=== PATIENT | female | born 1960 | race Caucasian/White ===

== ENCOUNTER → 2016-12-29 | Outpatient (CLI) | payer BC ==
--- NOTE | 2016-12-31 16:58 | RAD ---
Examination: XR THORACIC SPINE 2 VIEWS dated 12/29/2016 9:19 AM CDT History: DORSALGIA Comparison: None Technique: Three views of the thoracic spine FINDINGS: The vertebral bodies demonstrate normal height and alignment. The intervertebral disc spaces are relatively well-preserved. Minimal degenerative changes. IMPRESSION: Minimal degenerative changes of the thoracic spine without acute findings. Electronically signed by: Tushar Martin MD 12/31/2016 4:57 PM CDT
--- NOTE | 2016-12-31 16:59 | RAD ---
Examination: XR CHEST 2 VIEWS dated 12/29/2016 9:19 AM CDT History: OTHER FATIGUE Comparison: None Technique: Frontal and lateral views of the chest Findings: The lungs are clear bilaterally. No pneumothorax or pleural effusion. The cardiomediastinal silhouette is within normal limits. Impression: No acute disease. Electronically signed by: Tushar Martin MD 12/31/2016 4:58 PM CDT
== END | disposition home or self-care (01) ==
LOC: LAB.O 08:42
PROVIDERS: ATTEND Emergency Medicine
DX: R05 Cough (principal); M54.9 Dorsalgia, unspecified; R53.83 Other fatigue

== ENCOUNTER 2018-07-30 17:44 | Emergency (ER) | payer BC ==
[2018-07-30] MEDS ORDERED: LACTATED RINGERS 1,000 ML ONE (18:01)
--- NOTE | 2018-07-30 18:15 | ED.PDOC ---
History of Present Illness - General Source: patient Exam Limitations: no limitations - History of Present Illness Initial Comments: Eliud Frost 58 y/o female brought by EMS to ER with bloody stool for the last 3 days and abdominal cramps initially seen at Urgent care clinic sent to ER with low blood pressure.No hematemesis.Had colonoscopy done at [facility]. 15 years ago for lower gi bleeding was diagnosed with colitis. Timing/Duration: other - 3 days Severity: severe Improving Factors: nothing Worsening Factors: nothing Associated Symptoms: other - see hpi <Mich Reid R - Last Filed: 07/30/18 19:15> <Christiano Houston - Last Filed: 07/30/18 21:43> - General Chief Complaint: Blood Pressure Problem Stated Complaint: blood in stool Time Seen by Provider: 07/30/18 18:15 - History of Present Illness Allergies/Adverse Reactions: Allergies Cefaclor [From Ceclor] Allergy (Verified 07/30/18 18:08) NSAIDs Allergy (Verified 07/30/18 18:09) Home Medications: Ambulatory Orders Albuterol Sulfate Nebs [Proventil Nebs] 2.5 mg INH TID PRN 07/30/18 Albuterol Sulfate [Ventolin Hfa] 90 mcg IN Q4H PRN 07/30/18 Xttlxfyydt-Hsdscgnvbnyms-Jocng [Butalbital/Acetaminophen/] 1 cap PO Q6H PRN 07/30/18 Clonidine HCl 0.1 mg PO TID 07/30/18 DULoxetine HCL [Cymbalta] 30 mg PO DAILY 07/30/18 Dicyclomine HCl [Bentyl] 40 mg PO QID 07/30/18 Famotidine [Pepcid Tab] 20 mg PO BID 07/30/18 Lisinopril [Zestril] 40 mg PO DAILY 07/30/18 Metoprolol Tartrate [Lopressor] 100 mg PO BID 07/30/18 Montelukast [Singulair] 10 mg PO DAILY 07/30/18 Review of Systems - Review of Systems Constitutional: States: no symptoms reported EENTM: States: no symptoms reported Respiratory: States: no symptoms reported Cardiology: States: no symptoms reported Gastrointestinal/Abdominal: States: see HPI, other - melena Genitourinary: States: no symptoms reported Musculoskeletal: States: no symptoms reported All other Systems: Reviewed and Negative, No Change from Baseline <LucilaSarahi fergusono R - Last Filed: 07/30/18 19:15> Past Medical History (General) - Patient Medical History Hx of COPD: Yes Surgical History: cholecystectomy, other - cone biopsy - Social History Hx Alcohol Use: No Hx Substance Use: No Hx Physical Abuse: No Hx Emotional Abuse: No - Female History Patient is a Female of Child Bearing Age (10 -59 yrs old): Yes Patient : No <LucilaNishant fergusonEpps R - Last Filed: 07/30/18 19:15> Family Medical History - Family History Mother Living Status: Still Living Hx Family Diabetes: Yes - multiple family members Father Living Status: Hx Cardiac Disease: Yes Hx Family Diabetes: Yes <LucilaNishant fergusonEpps R - Last Filed: 07/30/18 19:15> Physical Exam - Physical Exam General Appearance: Alert, Comfortable, No apparent distress Eye Exam: bilateral normal, bilateral other - pale conjunctiva Ears, Nose, Throat: hearing grossly normal, normal ENT inspection Neck: non-tender, full range of motion, supple Respiratory: chest non-tender, lungs clear, normal breath sounds Cardiovascular/Chest: normal peripheral pulses, regular rate, rhythm, no murmur Peripheral Pulses: radial,right: 2+ Gastrointestinal/Abdominal: normal bowel sounds, non tender, soft Rectal Exam: normal rectal tone, other - no gross blood Back Exam: no CVA tenderness, no vertebral tenderness <StewartNishantEpps R - Last Filed: 07/30/18 19:15> Progress - Progress Progress: 07/30/18 18:33 Vital Signs - 24 hr 07/30/18 18:16 Temperature 97.1 F L Pulse Rate [L 68 finger] Respiratory 18 Rate Blood Pressure 74/48 [L arm] O2 Sat by Pulse 95 Oximetry <StewartNishantEpps R - Last Filed: 07/30/18 19:15> - Progress Progress: 07/30/18 20:45 PT SEEN INITIALLY BY DR REID, TRANSFERRED TO [facility] AT 1900, C/O 3 DAYS OF DIARRHEA, WATERY THEN WITH BRIGHT RED BLOOD. HAS NOT HAD ANY BLEEDING TODAY, C/O LOWER ABD PAIN, LIKE LABOR CRAMP, OCC COUGH. DENIES FEVER, N/V. PT HAS HX OF HTN, IBS FIBROMYALGIA, CLUSTER HERNANDEZ. PT IS HYPOTENSIVE AND HAS DIFFUSE TTP LOWER ABD WITH SOME VOLUNTARY GUARDING, BUT PT REFERS THAT THAT PAIN IS TYPICAL OF HER FIBROMYALGIA. AFTER 2 LITERS OF IV FLUIDS BP IS IN THE 70'S. PT TAKES BETA BLOQUERS, GLUCAGON WAS GIVEN WITH NO IMPROVEMENT. THIRD LITTER WAS STARTED, AND WILL START LEVOPHED DRIP. CALL [facility] FOR TRANSFER BUT TRANSFER LINE IS BUSY AT THE MOMENT. CT ABD WAS ORDERED WITH OUT CONTRAST DUE TO JEAN-PIERRE. 07/30/18 20:51 07/30/18 21:35 PT ON HER THIRD LITER OF FLUIDS, ON LEVOPHED, BP 137/96, FEELING BETTER, (+) URINE OUTPUT. D/W DR TUCKER AT [facility] IN , WILL TRANSFER TO [place]. CRITICAL CARE NOTE: CRITICAL EVENT: BLOODY DIARRHEA CRITICAL FINDINGS: BP 60'S/40'S, CR: 2.88 CRITICAL ACTIONS: AGGRESSIVE FLUID RESUSCITATION, LEVOPHED DRIP, TRANSFER TO A HIGHER LEVEL OF CARE. CRITICAL TIME SPENT: 65 MINUTES 07/30/18 21:39 07/30/18 18:09 Lactated Ringers [Lr] 1,000 ml IVS .QD 07/30/18 19:45 EKG STAT 07/30/18 19:49 PROCALCITONIN Stat 07/30/18 20:30 Norepinephrine Bitartrate [Levophed] 4 mg Dextrose 5% 250Ml [D5W 250ml] 250 ml IVPB PRN 07/30/18 20:49 URINALYSIS Stat 07/30/18 20:53 Catheter:Dempsey QSHIFT 07/30/18 21:25 Telemetry ONCE 07/30/18 21:33 EKG Assessment ONCE 07/30/18 21:45 EKG STAT Laboratory Results - last 24 hr 07/30/18 07/30/18 07/30/18 18:15 18:30 18:51 WBC 6.5 RBC 3.70 L Hgb 12.2 Hct 36.7 MCV 99.3 H MCH 33.1 H MCHC 33.3 RDW 14.4 Plt Count 268 MPV 8.7 Absolute Neuts (auto) 4.60 Absolute Lymphs (auto) 1.40 Absolute Monos (auto) 0.40 Absolute Eos (auto) 0.10 Absolute Basos (auto) 0.00 Neutrophils % 71.4 Lymphocytes % 20.9 Monocytes % 5.8 Eosinophils % 1.3 Basophils % 0.6 PT 9.5 INR 0.95 PTT (SP) 19.6 L Sodium 135 Potassium 3.9 Chloride 101 Carbon Dioxide 23 Anion Gap 14.9 BUN 31 H Creatinine 2.88 H BUN/Creatinine Ratio 10.8 Random Glucose 84 Serum Osmolality 275.8 Calcium 8.6 Magnesium 1.9 Total Bilirubin 0.3 Direct Bilirubin 0.1 Indirect Bilirubin 0.2 AST 19 ALT 12 Alkaline Phosphatase 117 Creatine Kinase 37 CK-MB (CK-2) 1.8 CK-MB (CK-2) % 4.86 H Troponin I 0.02 Serum Total Protein 6.7 Albumin 3.6 Stool Occult Blood Positive Patient ABO/Rh Cancelled Antibody Screen Cancelled - EKG/XRAY/CT Comments: EKG: NSR 63X', AQRS: 85, QTc 462, NON SPECIFIC STT CHANGES. Xray Comments: CXR: NAF CT Interpretation Call Back: Yes - NO OBSTRUCTION OR INFLAMATION NOTES <Christiano Houston - Last Filed: 07/30/18 21:43> Departure <Mich Reid - Last Filed: 07/30/18 19:15> <Christiano Houston - Last Filed: 07/30/18 21:43> - Departure Clinical Impression: Gastroenteritis, Acute kidney injury Hypotension Qualifiers: Hypotension type: hypotension due to hypovolemia Qualified Code(s): I95.89 - Other hypotension; E86.1 - Hypovolemia Disposition: Transfer to Hospital Condition: Fair Departure Forms: ED Discharge - Pt. Copy, Patient Portal Self Enrollment Instructions: DI for High Blood Pressure Referrals: TIMMY AVALOS [Primary Care Provider] - 1-2 Weeks Home Medications: Ambulatory Orders Albuterol Sulfate Nebs [Proventil Nebs] 2.5 mg INH TID PRN 07/30/18 Albuterol Sulfate [Ventolin Hfa] 90 mcg IN Q4H PRN 07/30/18 Qkfxmzonnu-Dhivfnxmpohex-Prvyh [Butalbital/Acetaminophen/] 1 cap PO Q6H PRN 07/30/18 Clonidine HCl 0.1 mg PO TID 07/30/18 DULoxetine HCL [Cymbalta] 30 mg PO DAILY 07/30/18 Dicyclomine HCl [Bentyl] 40 mg PO QID 07/30/18 Famotidine [Pepcid Tab] 20 mg PO BID 07/30/18 Lisinopril [Zestril] 40 mg PO DAILY 07/30/18 Metoprolol Tartrate [Lopressor] 100 mg PO BID 07/30/18 Montelukast [Singulair] 10 mg PO DAILY 07/30/18
[2018-07-30] MEDS: LACTATED RINGERS 1,000 ML IVS PRN (18:49)
[2018-07-30] MEDS ORDERED: GLUCAGON INJ 1 MG VIAL ONE (19:18)
[2018-07-30] MEDS: GLUCAGON INJ 1 MG VIAL IV ONE (19:22)
--- NOTE | 2018-07-30 19:33 | RAD ---
EXAM: Chest,1 View CLINICAL INDICATION: Pain COMPARISON: 12/29/2016 FINDINGS: A single view of the chest was obtained. The heart size is normal. The pulmonary vascularity is unremarkable. The lungs are clear. There is no consolidation, infiltrate, pleural effusion, or pneumothorax. IMPRESSION: No evidence of active pulmonary disease. Electronically signed by: Augustine Butts MD 07/30/2018 7:31 PM CDT
[2018-07-30] MEDS: SODIUM CHLORIDE 0.9% 1000ML 1,000 ML IVS ONE (19:49)
[2018-07-30] MEDS ORDERED: NOREPINEPHRINE BITARTRATE 4 MG/4 ML VIAL IVPB ONE (20:36)
[2018-07-30] MEDS ORDERED: DEXTROSE 5% 250ML 250 ML ONE (20:37)
[2018-07-30] MEDS: NOREPINEPHRINE BITARTRATE 4 MG in DEXTROSE 5% 250ML 250 ML IVPB SCH (20:43)
[2018-07-30 21:05] VITALS: O2SAT 98
--- NOTE | 2018-07-30 21:28 | CT ---
EXAM: CT Abdomen and Pelvis Without Intravenous Contrast CLINICAL HISTORY: 58 years old and is Female; LOWER ABD PAIN, DIARRHEA, HYPOTENSION, JEAN-PIERRE TECHNIQUE: Axial computed tomography images of the abdomen and pelvis without intravenous contrast. Sagittal and coronal reformatted images were created and reviewed. This CT exam was performed using one or more of the following dose reduction techniques: automated exposure control, adjustment of the mA and/or kV according to patient size, and/or use of iterative reconstruction technique. COMPARISON: No relevant prior studies available. FINDINGS: Limitations: None. Lung bases: Centrilobular emphysematous changes are present. ABDOMEN: Liver: Unremarkable. Gallbladder and bile ducts: Cholecystectomy. No ductal dilation. Pancreas: Unremarkable. No ductal dilation. Spleen: Unremarkable. No splenomegaly. Adrenals: Unremarkable. No mass. Kidneys and ureters: There is a slightly ill-defined hypodensity in the posterior mid pole cortex right kidney measuring 1.0 x 1.0 cm. No stones or hydronephrosis. Left kidney appears normal. Stomach and bowel: Moderate to large amounts of right and transverse colonic stool present. No mucosal thickening. PELVIS: Appendix: No findings to suggest acute appendicitis. Bladder: There is a catheter in the urinary bladder which is collapsed and not assessed. Reproductive: Unremarkable as visualized. ABDOMEN and PELVIS: Intraperitoneal space: Unremarkable. No free air. No significant fluid collection. Bones/joints: Incidental sacral cysts noted. No acute fracture. No dislocation. Soft tissues: Unremarkable. Vasculature: Atherosclerosis of the aorta and branches. No aneurysm. Lymph nodes: Unremarkable. No enlarged lymph nodes. IMPRESSION: 1. No intestinal obstruction or evident inflammation. 2. Ill-defined low-density nodule right kidney may represent a cyst. Further evaluation with sonography recommended unless there is an old study to compare. Electronically signed by: Gavi Thayer MD 07/30/2018 9:25 PM CDT
[2018-07-30 22:02] VITALS: BP 138/88; TEMP 97
== END 2018-07-30 22:22 | disposition short-term general hospital (02) ==
LOC: ER 17:44
DX: K52.9 Noninfective gastroenteritis and colitis, unspecified (principal); N17.9 Acute kidney failure, unspecified; I95.89 Other hypotension; E86.1 Hypovolemia; K92.1 Melena; K58.9 Irritable bowel syndrome, unspecified; I10 Essential (primary) hypertension; M79.7 Fibromyalgia; J44.9 Chronic obstructive pulmonary disease, unspecified; Z90.49 Acquired absence of other specified parts of digestive tract; Z79.899 Other long term (current) drug therapy; Z88.6 Allergy status to analgesic agent; Z88.1 Allergy status to other antibiotic agents
CPT/HCPCS: 71045; 74176; 80048; 80076; 81001; 82270; 82550; 82553; 84484; 85025; 85610; 85730; 93005; J1610; J7030; J7060; J7120

== ENCOUNTER 2018-11-18 16:18 | Emergency (ER) | payer BC ==
--- NOTE | 2018-11-18 16:27 | ED.PDOC ---
History of Present Illness - General Chief Complaint: Neuro Symptoms/Deficits Stated Complaint: left sided weakness Time Seen by Provider: 11/18/18 16:21 Source: patient Exam Limitations: no limitations - History of Present Illness Initial Comments: Eliud Frost 58 y/o female brought by EMS after patient was feeling weak on her left side and had some slurred speech on waking up from her nap about an hour ago.But according to he stated that she had been sleeping a lot today and on waking up mentioned that she might be having stroke so called up ambulance.Has history of HTN and chronic right shoulder pain goes to pain specialist was recently prescribed buprenorphine-2mg BID which she started 14 Nov 2018.On her .FSBS-144 mg/dl taken by EMS.On her arrival here at ER she was somnolent with slow speech no lateralizing neurological signs. Timing/Duration: 1-3 hours Severity: moderate Episode Description: see hpi Improving Factors: nothing Worsening Factors: nothing Associated Symptoms: other - see hpi Allergies/Adverse Reactions: Allergies Cefaclor [From Ceclor] Allergy (Verified 07/30/18 18:08) NSAIDs Allergy (Verified 07/30/18 18:09) Home Medications: Ambulatory Orders Albuterol Sulfate Nebs [Proventil Nebs] 2.5 mg INH TID PRN 07/30/18 Albuterol Sulfate [Ventolin Hfa] 90 mcg IN Q4H PRN 07/30/18 Xnfnqtjose-Voluvimjflzoz-Hqysr [Butalbital/Acetaminophen/] 1 cap PO Q6H PRN 07/30/18 DULoxetine HCL [Cymbalta] 60 mg PO DAILY 07/30/18 Lisinopril [Zestril] 40 mg PO DAILY 07/30/18 Metoprolol Tartrate [Lopressor] 100 mg PO BID 07/30/18 Buprenorphine HCl 2 mg SL BID 11/18/18 Docusate Sodium [Stool Softener] 100 mg PO PRN 11/18/18 Pantoprazole Sodium 40 mg PO DAILY 11/18/18 Pregabalin [Lyrica] 75 mg PO BID 11/18/18 hydrOXYzine HCl [Atarax] 25 mg PO Q8H 11/18/18 Review of Systems - Review of Systems Neurological: States: see HPI All other Systems: Reviewed and Negative, No Change from Baseline Past Medical History (General) - Patient Medical History Hx Stroke: No Hx of COPD: Yes Hx Congestive Heart Failure: No Hx Hypertension: Yes Hx Diabetes: No Hx Gastroesophageal Reflux: Yes Hx Other PMH: Yes - chroni right shoulder pain Surgical History: cholecystectomy, other - cone biopsy cervix - Vaccination History Hx Tetanus, Diphtheria Vaccination: Yes Hx Influenza Vaccination: Yes Hx Pneumococcal Vaccination: Yes - Social History Hx Tobacco Use: No Hx Alcohol Use: No Hx Substance Use: No Hx Substance Use Treatment: No Hx Depression: No Hx Physical Abuse: No Hx Emotional Abuse: No - Female History Patient : No Family Medical History - Family History Father Living Status: Hx Cardiac Disease: Yes Hx Family Diabetes: Yes Mother Living Status: Still Living Hx Family Diabetes: Yes - multiple family members Physical Exam - Physical Exam General Appearance: No apparent distress, Other - somnolent Eye Exam: bilateral normal ENT Exam: normal ENT inspection, hearing grossly normal, pharynx normal Neck: full range of motion, supple, normal inspection, trachea midline Respiratory: lungs clear, normal breath sounds, no respiratory distress Cardiovascular/Chest: normal peripheral pulses, no murmur, tachycardia - sinus Peripheral Pulses: radial,right: 2+, radial,left: 2+ Gastrointestinal/Abdominal: non tender, soft Back Exam: no CVA tenderness, no vertebral tenderness 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: normal hearing, normal speech, PERRL Motor/Sensory: no motor deficit, no sensory deficit, no pronator drift, negative Babinski's sign Skin Exam: normal color, warm/dry Progress - Progress Progress: 11/18/18 17:53 Vital Signs - 8 hr 11/18/18 11/18/18 16:20 17:18 Temperature 97.4 F L Pulse Rate [ 132 H 131 H Left Brachial] Respiratory 16 20 Rate Blood Pressure 178/136 136/102 [Left Arm] O2 Sat by Pulse 93 L 95 Oximetry 11/18/18 18:21 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 - Results/Orders Results/Orders: 11/18/18 16:27 URINALYSIS Stat 11/18/18 16:30 EKG STAT 11/18/18 16:32 URINE DRUG SCREEN, 7 ASSAY Stat 11/18/18 17:38 Sodium Chloride 0.9% 1000ML [Ns 1000 ml] 1,000 ml IVS ONCE 11/18/18 17:42 Sodium Chloride 0.9% 1000ML [Ns 1000 ml] 1,000 ml IVS .QD Laboratory Results - last 24 hr 11/18/18 11/18/18 11/18/18 16:27 16:32 16:33 WBC 9.1 RBC 4.26 Hgb 13.8 Hct 40.6 MCV 95.3 MCH 32.4 H MCHC 34.0 RDW 13.9 Plt Count 322 MPV 7.9 Absolute Neuts (auto) 7.40 H Absolute Lymphs (auto) 0.70 L Absolute Monos (auto) 0.90 H Absolute Eos (auto) 0.10 Absolute Basos (auto) 0.00 Neutrophils % 81.1 H Lymphocytes % 8.1 L Monocytes % 9.7 H Eosinophils % 0.6 L Basophils % 0.5 PT 10.3 INR 1.03 PTT (SP) 25.7 Sodium 140 Potassium 4.3 Chloride 101 Carbon Dioxide 25 Anion Gap 18.3 H BUN 48 H Creatinine 2.82 H BUN/Creatinine Ratio 17.0 Random Glucose 130 H Serum Osmolality 293.8 Lactic Acid 1.3 Calcium 9.1 Magnesium 2.2 Total Bilirubin 0.9 Direct Bilirubin < 0.1 Indirect Bilirubin 0.8 AST 22 ALT 13 Alkaline Phosphatase 173 H Creatine Kinase 264 H* CK-MB (CK-2) 11.5 H* CK-MB (CK-2) % 4.36 H Troponin I 0.24 H* Serum Total Protein 8.0 Albumin 4.4 TSH 1.08 Discuss test result with patient family and transfer to [facility] agreed with plan - EKG/XRAY/CT EKG: Sinus, Tachy, nonspecific ST T wave Chg, Changed from - July 2018 Comments: HR-129 Stroke Information - Contraindications Antithrombotic Contraindication: Treatment not indicated t-PA Contraindication: Drug Tx Not Indicated Departure - Departure Clinical Impression: Somnolence, Non-STEMI (non-ST elevated myocardial infarction), Renal insufficiency Chronic shoulder pain Qualifiers: Laterality: right Qualified Code(s): M25.511 - Pain in right shoulder Time of Disposition: 18:30 Disposition: Transfer to Hospital Condition: Fair Departure Forms: ED Discharge - Pt. Copy, Patient Portal Self Enrollment Referrals: TIMMY AVALOS [Primary Care Provider] - 1-2 Weeks Home Medications: Ambulatory Orders Albuterol Sulfate Nebs [Proventil Nebs] 2.5 mg INH TID PRN 07/30/18 Albuterol Sulfate [Ventolin Hfa] 90 mcg IN Q4H PRN 07/30/18 Nhsncfcieh-Bypofkgjeiktq-Dojgd [Butalbital/Acetaminophen/] 1 cap PO Q6H PRN 07/30/18 DULoxetine HCL [Cymbalta] 60 mg PO DAILY 07/30/18 Lisinopril [Zestril] 40 mg PO DAILY 07/30/18 Metoprolol Tartrate [Lopressor] 100 mg PO BID 07/30/18 Buprenorphine HCl 2 mg SL BID 11/18/18 Docusate Sodium [Stool Softener] 100 mg PO PRN 11/18/18 Pantoprazole Sodium 40 mg PO DAILY 11/18/18 Pregabalin [Lyrica] 75 mg PO BID 11/18/18 hydrOXYzine HCl [Atarax] 25 mg PO Q8H 11/18/18 Transfer to Outside Facility - Transfer Information Accepting Provider:: D/W Dr. Vela-Cardilogist ;Dr. 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
[2018-11-18] MEDS ORDERED: SODIUM CHLORIDE 0.9% 500ML 500 ML IVS ONE (16:34)
[2018-11-18] MEDS ORDERED: ASPIRIN (CHEWABLE) 81 MG TAB PO ONE (16:48)
--- NOTE | 2018-11-18 17:11 | RAD ---
EXAM DESCRIPTION: Chest,1 View CLINICAL HISTORY: 58 years Female, weakness COMPARISON: July 30, 2018 TECHNIQUE: Portable AP chest FINDINGS: Cardiac silhouette and mediastinum are within normal limits. Left hemidiaphragm is now elevated. No infiltrates. IMPRESSION: Left hemidiaphragm is elevated. No infiltrates Electronically signed by: Jesus Alberto Petit 11/18/2018 5:10 PM CDT
--- NOTE | 2018-11-18 17:13 | CT ---
EXAM DESCRIPTION: Head CLINICAL HISTORY: 58 years Female, left sided weakness COMPARISON: None. TECHNIQUE: Axial imaging. No IV contrast. Sagittal and coronal reconstruction FINDINGS: Ventricular system is within normal limits. Mild periventricular low-attenuation change consistent with mild chronic small vessel ischemia. No masses. There is no evidence of intracranial hemorrhage. Left nasal septal deviation with left nasal septal spur formation IMPRESSION: Mild periventricular low-attenuation change consistent with mild chronic small vessel ischemia. If there is clinical concern for acute cerebral ischemia, MR imaging with diffusion sequences would be useful for further diagnostic evaluation Electronically signed by: Jesus Alberto Petit 11/18/2018 5:12 PM CDT
[2018-11-18] MEDS ORDERED: SODIUM CHLORIDE 0.9% 1000ML 1,000 ML IVS ONE (17:38)
[2018-11-18] MEDS ORDERED: SODIUM CHLORIDE 0.9% 1000ML 1,000 ML IVS PRN (17:42)
[2018-11-18] MEDS ORDERED: METOPROLOL SUCCINATE XL 50 MG TAB PO ONE (18:23)
[2018-11-18] MEDS ORDERED: ENOXAPARIN SODIUM 60 MG/0.6 ML SYG SUBCU ONE (18:26)
[2018-11-18 18:46] VITALS: BP 126/75; TEMP 96.1; O2SAT 96
== END 2018-11-18 18:46 | disposition short-term general hospital (02) ==
LOC: ER 16:18
DX: I21.4 Non-ST elevation (NSTEMI) myocardial infarction (principal); R40.0 Somnolence; N28.9 Disorder of kidney and ureter, unspecified; M25.511 Pain in right shoulder; G89.29 Other chronic pain; R00.0 Tachycardia, unspecified; K21.9 Gastro-esophageal reflux disease without esophagitis; I10 Essential (primary) hypertension; J44.9 Chronic obstructive pulmonary disease, unspecified; Z79.899 Other long term (current) drug therapy; Z88.1 Allergy status to other antibiotic agents; Z88.6 Allergy status to analgesic agent
CPT/HCPCS: 36415; 70450; 71045; 80048; 80076; 82550; 82553; 83605; 84443; 84484; 85025; 85610; 85730; 93005; J1650; J7030; J7040

== ENCOUNTER 2018-12-14 18:58 | Inpatient (IN) | payer BC ==
--- NOTE | 2018-12-14 19:08 | ED.PDOC ---
History of Present Illness - General Time Seen by Provider: 12/14/18 19:05 - History of Present Illness Initial Comments: 58 year old female with multiple medical problems including emphysema, possibles coronary artery diseases, atrial fibrillation ulcerativ colitis, patient present to the er because of shortness of breath patient has an hx of emphysema and she is not oxygen dependant at home, patient usually give herlsef a respiratory treatment twice a day, today after 3 pm she gave herself a treatment and the she started having palpitations. Ems gave her adenosine since her rate was in 140's and no improvement. patient was recently transferred from here to a different facility for stroke like symptoms, chest pain, and dehydration Allergies/Adverse Reactions: Allergies Cefaclor [From [facility]] Allergy (Verified 07/30/18 18:08) NSAIDs Allergy (Verified 07/30/18 18:09) Home Medications: Ambulatory Orders Albuterol Sulfate Nebs [Proventil Nebs] 2.5 mg INH TID PRN 07/30/18 Albuterol Sulfate [Ventolin Hfa] 90 mcg IN Q4H PRN 07/30/18 [id number] [Butalbital/Acetaminophen/] 1 cap PO Q6H PRN 07/30/18 DULoxetine HCL [Cymbalta] 60 mg PO DAILY 07/30/18 Lisinopril [Zestril] 40 mg PO DAILY 07/30/18 Metoprolol Tartrate [Lopressor] 100 mg PO BID 07/30/18 Buprenorphine HCl 2 mg SL BID 11/18/18 Docusate Sodium [Stool Softener] 100 mg PO PRN 11/18/18 Pantoprazole Sodium 40 mg PO DAILY 11/18/18 Dicyclomine HCl [Bentyl] 40 mg PO QID 12/14/18 Review of Systems - Review of Systems Constitutional: States: no symptoms reported. Denies: chills, diaphoresis, fever, malaise, weakness EENTM: States: no symptoms reported. Denies: double vision, ear pain, ear discharge, nose pain, nose congestion, throat pain, throat swelling, mouth pain, mouth swelling Respiratory: States: no symptoms reported. Denies: cough, orthopnea, short of breath, stridor, wheezing Cardiology: States: no symptoms reported. Denies: chest pain, edema, palpitations, syncope Gastrointestinal/Abdominal: States: no symptoms reported. Denies: abdominal pain, constipation, diarrhea, nausea, vomiting Genitourinary: States: no symptoms reported. Denies: dysuria, frequency, hematuria, pain Musculoskeletal: States: no symptoms reported. Denies: back pain, joint pain, joint swelling, muscle pain, muscle stiffness, neck pain Skin: States: no symptoms reported. Denies: change in color Neurological: States: no symptoms reported Endocrine: States: no symptoms reported. Denies: excessive sweating, flushing, intolerance to cold, intolerance to heat, increased hunger, increased thirst, unexplained weight gain, unexplained weight loss Hematologic/Lymphatic: States: no symptoms reported. Denies: blood clots Past Medical History (General) - Patient Medical History Hx Seizures: Yes Hx Stroke: No Hx of COPD: Yes Hx Congestive Heart Failure: No Hx Hypertension: Yes Hx Diabetes: No Hx Gastroesophageal Reflux: Yes - Vaccination History Hx Tetanus, Diphtheria Vaccination: Yes Hx Influenza Vaccination: Yes Hx Pneumococcal Vaccination: Yes - Social History Hx Tobacco Use: No Hx Alcohol Use: No Hx Substance Use: No Hx Substance Use Treatment: No Hx Depression: No Hx Physical Abuse: No Hx Emotional Abuse: No - Female History Patient : No Family Medical History - Family History Father Living Status: Hx Cardiac Disease: Yes Hx Family Diabetes: Yes Mother Living Status: Still Living Hx Family Diabetes: Yes - multiple family members Physical Exam - Physical Exam General Appearance: Alert, Anxious Eye Exam: bilateral normal Ears, Nose, Throat: hearing grossly normal, normal ENT inspection Neck: full range of motion Respiratory: chest non-tender, lungs clear, normal breath sounds, no respiratory distress Cardiovascular/Chest: normal peripheral pulses, no edema, no JVD, tachycardia, o ther - tachycardic Peripheral Pulses: radial,right: 2+, radial,left: 2+ Gastrointestinal/Abdominal: normal bowel sounds, non tender, soft, no organom egaly, no pulsatile mass Extremity: normal range of motion, non-tender, normal inspection, normal capillary refill Neurologic: no motor/sensory deficits, normal mood/affect, oriented x 3 Progress - Progress Progress: 12/14/18 21:01 this is a patient that presents with sob afte given her self a respiratory treatment at home, patient has an history of emphysema and also ulcerative colitis, her intial ekg showed what looked like a-fib and patient received a dose of adenosine via ems , without improvement. i decided to give her a dose of cardiezem and there was some minimal improvement. melecio stated that she was recently taking off the fibromyalgias medicine. patient use to be on hydrocodone. 12/14/18 21:04 patient d dimer were negative, troponins were also negative, normal hemoglobin and normal electrolites, chest x ray showed copd changes, patient at the moment is state she she feels better but her entire body hurts, patient afte ativan, fluid bolus ahd she is still tachycardic and bp remained elevated, i ordered a dose of hydralazine and discussed case with the hospitalist 12/14/18 21:08 tsh was also negative 12/14/18 21:24 i was able to speak with hospitalist and she stated that if we can keep the heart rate under 120 then we could keep her in ther Hospital, patient bp improved with the hyrdralazine, patient doesnt not appear in any distress and is able to speak in long a complete sentences no chest pain 12/15/18 00:54 patient blood work was essentially negative case was discussed with hospitalist because her heart rate had ramained high we will put her a cardizem drip and patient will be observe in the er if the heart rate remains in 120 or lower then patient will be admitted to our hospital 12/15/18 00:56 i suspect that patient symptoms due arrhythmia but also could be due to withdrawal from opiates 12/15/18 00:57 - EKG/XRAY/CT Comments: sinus tachycardia, heart rate 130, depressed st in lead II Departure - Departure Clinical Impression: Heart palpitations, Shortness of breath Disposition: Admit Patient Condition: Fair Health Concerns: stable to admit Referrals: TIMMY AVALOS [Primary Care Provider] - 1-2 Weeks Home Medications: Ambulatory Orders Albuterol Sulfate Nebs [Proventil Nebs] 2.5 mg INH TID PRN 07/30/18 Albuterol Sulfate [Ventolin Hfa] 90 mcg IN Q4H PRN 07/30/18 [id number] [Butalbital/Acetaminophen/] 1 cap PO Q6H PRN 07/30/18 DULoxetine HCL [Cymbalta] 60 mg PO DAILY 07/30/18 Lisinopril [Zestril] 40 mg PO DAILY 07/30/18 Metoprolol Tartrate [Lopressor] 100 mg PO BID 07/30/18 Buprenorphine HCl 2 mg SL BID 11/18/18 Docusate Sodium [Stool Softener] 100 mg PO PRN 11/18/18 Pantoprazole Sodium 40 mg PO DAILY 11/18/18 Dicyclomine HCl [Bentyl] 40 mg PO QID 12/14/18
[2018-12-14] MEDS ORDERED: SODIUM CHLORIDE 0.9% 1000ML 1,000 ML IVS ONE (19:09)
--- NOTE | 2018-12-14 19:45 | RAD ---
EXAM: AP CHEST RADIOGRAPH CLINICAL INDICATION: Shortness of breath. COMPARISON: Compared to chest radiograph of November 18, 2018. FINDINGS: Cardiac size remains normal. Pulmonary vasculature is peripherally distorted suggesting COPD and emphysematous disease. No pleural effusions. No pneumothorax, pneumomediastinum or free peritoneal gas. No hilar or mediastinal lymphadenopathy. No mediastinal widening. Bones are intact on this single view. IMPRESSION: COPD. No superimposed acute cardiopulmonary disease or pneumothorax. Electronically signed by: Jesus Alberto Julio MD 12/14/2018 7:44 PM CDT
[2018-12-14] MEDS ORDERED: hydrALAZINE HCl 20 MG/ML VIAL IV ONE (20:40)
[2018-12-14] MEDS ORDERED: SODIUM CHLORIDE 0.9% 100ML 100 ML IVPB ONE (21:25)
[2018-12-14] MEDS ORDERED: diltiaZEM DRIP 125 MG/25 ML VIAL IVPB ONE (21:25)
[2018-12-14] MEDS: diltiaZEM DRIP 125 MG in SODIUM CHLORIDE 0.9% 100ML 100 ML IVPB SCH (21:26)
[2018-12-14] MEDS ORDERED: niCARdipine HCL 25 MG in SODIUM CHLORIDE 0.9% 250ML 240 ML IVPB SCH (21:30)
[2018-12-14] MEDS ORDERED: ONDANSETRON INJ 4 MG/2 ML VIAL IV ONE (22:58)
[2018-12-14] MEDS ORDERED: diphenhydrAMINE HCL 50 MG/ML VIAL IV ONE (23:23)
--- NOTE | 2018-12-15 01:01 | HP ---
SUPERVISING PHYSICIAN: Gordo Bazzi M.D. CHIEF COMPLAINT: Shortness of breath and palpitations. HISTORY OF PRESENT ILLNESS: This is a 58 year-old female patient who presented to the Emergency Room due to palpitations and shortness of breath. She has not felt well for 2 weeks. She had these palpitations and shortness of breath, and yesterday at about 6:00 PM she went to the football field to watch her granddaughter do some cheerleading. She took an Albuterol treatment prior to going. She was trying to get up into the stands and she was unable to get up more than several steps, and had to come home and then went to the E. R. She has a fairly extensive history of emphysema, cardiac problems, atrial fibrillation and ulcerative colitis. She does not weary oxygen at home but she is on nebulizer treatments. She actually received some adenosine in the ambulance with minimal results. She presented to the Emergency Room and her heart rate was in the 140s. She was initially given some Cardizem. Her initial vital signs showed temperature 98.5, heart rate 140, blood pressure 157/109, respiratory rate 20 and O2 sat 97%. She was actually given some Cardizem IV in the E. R. and it did come down to 118, but shortly thereafter went up again to the 130s and 140s. At that time she was put on a Cardizem drip. Laboratory was obtained and showed a fairly unremarkable CBC with the exception of a very mild left leg shift on differential. D-dimer was negative. Chemistries showed electrolytes within normal limits. BNP was slightly high at 129 and alkaline phosphatase was slightly high at 134. Troponin was negative at 0.02. Chest x- ray showed no superimposed acute cardiopulmonary disease or pneumothorax. It is to be noted that she has chronic pain syndrome and has been on Sheldahl for 12 years, and about 1 month ago she was titrated off of her medications. She was also given buprenorphine and she was unable to take it. There are no other pain medications that she is taking. She has some shoulder pain as well as fibromyalgia and some neuropathy in her feet as well as some back pain. PAST MEDICAL HISTORY: 1. Left shoulder pain. 2. Chronic obstructive pulmonary disease. 3. Ulcerative colitis recently diagnosed about 6 months ago, presently has no neurologist. 4. Fibromyalgia. 5. Mitral valve prolapse presently does not have a android ui developer. 6. Remote history of seizure times 1. It was most likely due to hyponatremia in 2005. 7. Hypertension. 8. Gastroesophageal reflux disease. 9. Cluster headaches. PAST SURGICAL HISTORY: 1. section times 3. 2. Appendectomy. 3. Cone biopsy in 1983. 4. Cholecystectomy. CURRENT MEDICATIONS: ALLERGIES: BUPRENORPHINE, CEFACLOR, VERSED, NSAIDs AND ZOFRAN. SOCIAL HISTORY: She lives in [place]. She is . She has 3 children. She is retired. She was a 1 pack a day smoker for over 30 years and she quit approximately 10 years ago. She denies any ETOH or illicit drug use. REVIEW OF SYSTEMS: Negative for chills, fever or weight changes. HEENT: Negative for vision changes, ear pain, sinus symptoms or sore throat. RESPIRATORY: Positive for shortness of breath. Negative for wheezing or coughing. CARDIAC: Positive for palpitations. Negative for the patient. GASTROINTESTINAL: Positive for right upper quadrant abdominal pain, but that has been going on for many years. Right upper quadrant and epigastric abdominal pain. Negative for nausea, vomiting or diarrhea. GENITOURINARY: Negative dysuria, polyuria or hematuria. MUSCULOSKELETAL: Positive for fibromyalgia and left shoulder pain as well as chronic back pain. SKIN: Negative for lesions or rashes. NEUROLOGIC: Positive for remote history of seizure times 1 in 2005. She is on no medications and has not had one since that time. Positive for cluster headaches. Negative for dizziness. PHYSICAL EXAMINATION: VITAL SIGNS: Temperature 97.7, heart rate 78, blood pressure 101/69, respiratory rate 18, O2 sat 94% on 1 liter nasal cannula. GENERAL: This is a 58 year-old female patient who is sitting up in her hospital bed. She is somewhat anxious. HEENT: Normocephalic and atraumatic. Pupils are equal and reactive. Oropharynx is clear. NECK: Supple without mass. RESPIRATORY: Essentially clear to auscultation bilaterally. CHEST: There is equal rise and fall of the chest with inspiration and expiration. CARDIOVASCULAR: Regular rate, slightly irregular to regular rhythm. 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 GASTROINTESTINAL: Abdomen is soft, nondistended, non-tender. Bowel sounds are positive. There is no guarding or rebound tenderness. EXTREMITIES: No clubbing, cyanosis or edema. NEUROLOGIC: She is awake, alert and oriented times three. Cranial nerves II- XII are grossly intact. LABORATORY: Followup labs show a CBC with a slightly low hemoglobin of 11.4 and hematocrit 34.3. Chemistry is unremarkable with the exception of her magnesium is slightly low at 1.6 and potassium is slightly low at 3.4. Alkaline phosphatase has normalized to 104. CT of her abdomen is pending. All other labs and films have been reviewed via the EMR. ASSESSMENT: 1. Atrial fibrillation with rapid ventricular response. 2. Chronic pain syndrome. She had been on Sheldahl for over 12 years and was titrated off about 1 month ago. She may be experiencing some psychological withdrawals. 3. Fibromyalgia. 4. Chronic back pain. 5. Ulcerative colitis presently on no medications and was recently diagnosed about 6 months ago. She did have a referral to GI in [place] but was unable to get that referral completed. 6. Chronic obstructive pulmonary disease without exacerbation. 7. Gastroesophageal reflux disease. 8. Hypertension on medications. 9. History of atrial fibrillation on Metoprolol. She also has not seen a android ui developer, although at some point she was supposed to see Dr. Snow. 10. History of mitral valve prolapse. 11. Remote history of seizure times 1 in 2005 most likely due to hyponatremia. PLAN: I have admitted the patient to the hospital. She initially was on a Cardizem drip and that was stopped this morning after her rate was controlled. I have continued her on some Cardizem p.o. every 6 hours. Will continue her home medications. Although her blood pressure was somewhat low this morning her antihypertensives were adjusted. We will monitor her heart rhythm closely. She does have some chronic pain syndrome, including some fibromyalgia. I will start her on some Neurontin and see if that will help her chronic pain. As an outpatient she will need to followup with a GI doctor and I will recommend that in my discharge. I have started her on both routine and p.r.n. nebulizer treatments. I put her on Protonix for ulcer prophylaxis as well as Lovenox for DVT prophylaxis. She is not on any anticoagulation therapy for her atrial fibrillation. I will talk to Dr. Bazzi about starting her on some Eliquis at discharge. She also needs to see a android ui developer at some point. She received magnesium and potassium supplementation today and I will repeat her labs in the morning. Will continue to monitor closely and follow as needed. #[id number] [facility]
[2018-12-15] MEDS ORDERED: LEVALBUTEROL NEBS 1.25 MG/3 ML VIAL NEB PRN (01:13)
[2018-12-15] MEDS ORDERED: ACETAMINOPHEN 325 MG TAB PO PRN (01:13)
[2018-12-15] MEDS ORDERED: ONDANSETRON INJ 4 MG/2 ML VIAL IV PRN (01:13)
[2018-12-15] MEDS ORDERED: SODIUM CHLORIDE 0.9% (FLUSH) 10 ML SYG IV PRN (01:13)
[2018-12-15] MEDS ORDERED: KCL 20 MEQ/NS 1,000 ML IVS ONE (01:25)
[2018-12-15] MEDS ORDERED: IV SET AND CAP CHANGE INJ INJ SCH (01:30)
[2018-12-15] MEDS ORDERED: diltiaZEM DRIP 125 MG in SODIUM CHLORIDE 0.9% 100ML 100 ML IVPB SCH (01:30)
[2018-12-15] MEDS ORDERED: PROMETHAZINE HCL INJ 25 MG in SODIUM CHLORIDE 0.9% 50ML 50 ML IVPB PRN (01:38)
[2018-12-15] MEDS ORDERED: SODIUM CHLORIDE 0.9% 100ML 100 ML IVPB ONE (01:41)
[2018-12-15] MEDS ORDERED: diltiaZEM DRIP 125 MG/25 ML VIAL IVPB ONE (01:41)
[2018-12-15] MEDS: diltiaZEM DRIP 125 MG in SODIUM CHLORIDE 0.9% 100ML 100 ML IVPB SCH (01:45)
[2018-12-15] MEDS ORDERED: ENOXAPARIN SODIUM 60 MG/0.6 ML SYG SUBCU ONE (02:02)
[2018-12-15] MEDS: TEMAZEPAM 15 MG CAP PO PRN ×2 (02:05→20:44)
[2018-12-15] MEDS: DICYCLOMINE HCL 20 MG TAB PO PRN ×2 (02:07→17:58)
[2018-12-15] MEDS ORDERED: METHADONE HCL 10 MG TAB PO ONE (03:27)
[2018-12-15] MEDS ORDERED: HALOPERIDOL LACTATE INJ 5 MG/ML VIAL IM ONE (03:45)
[2018-12-15] MEDS: PANTOPRAZOLE SODIUM IV 40 MG VIAL IV SCH (06:22)
[2018-12-15] MEDS: diltiaZEM HCL TAB 30 MG TAB PO SCH ×3 (06:44→18:43)
[2018-12-15] MEDS ORDERED: LISINOPRIL 10 MG TAB ONE (07:42)
[2018-12-15] MEDS ORDERED: METOPROLOL TARTRATE 50 MG TAB ONE (07:42)
[2018-12-15] MEDS ORDERED: ENOXAPARIN SODIUM 60 MG/0.6 ML SYG SUBCU SCH (08:00)
[2018-12-15] MEDS ORDERED: POTASSIUM CHLORIDE 20 MEQ TAB PO ONE (08:14)
[2018-12-15] MEDS ORDERED: MAGNESIUM SULFATE PREMIX 2GM 2 GM in PREMIX BAG 1 BAG IVPB ONE (08:14)
[2018-12-15] MEDS: LEVALBUTEROL NEBS 1.25 MG/3 ML VIAL NEB SCH ×4 (08:17→20:56)
[2018-12-15] MEDS ORDERED: DOCUSATE SODIUM 100 MG CAP PO PRN (09:00)
[2018-12-15] MEDS ORDERED: MAGNESIUM SULFATE PREMIX 2GM 0 ML IVPB ONE (09:06)
[2018-12-15] MEDS ORDERED: MAGNESIUM SULFATE PREMIX 2GM 50 ML IVPB ONE (09:09)
[2018-12-15] MEDS: DULoxetine HCL 30 MG CAP PO SCH (09:18)
[2018-12-15] MEDS: LISINOPRIL 10 MG TAB PO SCH (09:20)
[2018-12-15] MEDS: SODIUM CHLORIDE 0.9% (FLUSH) 10 ML SYG IV SCH ×2 (09:21→20:45)
[2018-12-15] MEDS: METOPROLOL TARTRATE 50 MG TAB PO SCH ×2 (09:21→17:49)
[2018-12-15] MEDS: ENOXAPARIN SODIUM 60 MG/0.6 ML SYG SUBCU SCH (14:37)
[2018-12-15] MEDS: GABAPENTIN 100 MG CAP PO SCH (14:37)
[2018-12-15] MEDS ORDERED: GABAPENTIN 300 MG CAP PO SCH (21:00)
[2018-12-16] MEDS: diltiaZEM HCL TAB 30 MG TAB PO SCH ×4 (01:17→18:29)
[2018-12-16] MEDS: ENOXAPARIN SODIUM 60 MG/0.6 ML SYG SUBCU SCH ×2 (01:17→15:11)
[2018-12-16] MEDS: DICYCLOMINE HCL 20 MG TAB PO PRN ×4 (05:13→16:55)
[2018-12-16] MEDS: PANTOPRAZOLE SODIUM IV 40 MG VIAL IV SCH (05:31)
[2018-12-16] MEDS ORDERED: traMADol HCL 50 MG TAB PO ONE (05:39)
[2018-12-16] MEDS: METOPROLOL TARTRATE 50 MG TAB PO SCH ×2 (06:54→16:51)
--- NOTE | 2018-12-16 07:33 | RAD ---
EXAM: XR Abdomen, 1 View CLINICAL HISTORY: The patient is 58 years old and is Female; abd pain TECHNIQUE: Frontal supine view of the abdomen/pelvis. COMPARISON: CT from December 15, 2018 FINDINGS: Gastrointestinal tract: Unremarkable. No dilation. Bones/joints: Unremarkable. IMPRESSION: No acute findings. Electronically signed by: Salomón Vazquez MD 12/16/2018 7:30 AM CDT
[2018-12-16] MEDS: LEVALBUTEROL NEBS 1.25 MG/3 ML VIAL NEB SCH ×4 (08:35→20:22)
[2018-12-16] MEDS: LISINOPRIL 10 MG TAB PO SCH (08:56)
[2018-12-16] MEDS: SODIUM CHLORIDE 0.9% (FLUSH) 10 ML SYG IV SCH ×2 (08:56→21:31)
[2018-12-16] MEDS: DULoxetine HCL 30 MG CAP PO SCH (08:56)
[2018-12-16] MEDS: GABAPENTIN 100 MG CAP PO SCH (08:56)
[2018-12-16] MEDS ORDERED: HALOPERIDOL TAB 1 MG TAB PO PRN (12:46)
[2018-12-16] MEDS: MAGNESIUM HYDROXIDE 30 ML UD PO SCH ×2 (13:23→16:51)
[2018-12-16] MEDS: SULFA/TRIMETH 800/160 (DS) TAB 1 EA TAB PO SCH ×2 (13:23→21:30)
[2018-12-16] MEDS: GABAPENTIN 300 MG CAP PO SCH (15:11)
--- NOTE | 2018-12-16 19:06 | PN ---
DATE: 12/16/18 SUPERVISING PHYSICIAN: Gordo Bazzi M.D. SUBJECTIVE: The patient is sitting up in bed. She said she is feeling some better today. Still feels quite weak, otherwise no chest pain, shortness of breath, nausea or vomiting. We discussed that she is somewhat constipated and I need to treat that with Milk of Magnesia. She also complained that she had a bump on the right side of her labia that had been bothering her for several days, and asked me to examine it. She also felt like the Haldol was working the best as far as her sleep problems were going, but she typically has a difficult time sleeping at any point. OBJECTIVE: VITAL SIGNS: Temperature 98.4, heart rate 82, blood pressure 160/99, respiratory rate 20, O2 sat 92% on room air. RESPIRATORY: Somewhat diminished at the bases with a few scattered rhonchi, otherwise clear to auscultation. CARDIAC: Regular rate and rhythm. GASTROINTESTINAL: Abdomen is soft, nondistended, non-tender. Bowel sounds are positive. SKIN: She does have an area of folliculitis on her right labia. There is no fluctuance. It is erythematous and edematous. NEUROLOGIC: She is awake, alert and oriented times three. LABORATORY: CBC is mostly unremarkable with the exception of her hemoglobin and hematocrit are slightly lower today at 10.9 and 32.8. Electrolytes are basically within normal limits. CT of the abdomen from yesterday showed no acute abdominal processes but she was positive for constipation. Abdominal x-ray from this morning shows no acute findings. All other labs and films have been reviewed via the EMR. ASSESSMENT: 1. Atrial fibrillation with rapid ventricular response. Initially was on a Cardizem drip, has been titrated off and is on p.o. Cardizem. 2. Chronic pain syndrome. She had been on Belt for over 12 years and was titrated off about 1 month ago. There may be some psychological withdrawals at this time. 3. Fibromyalgia. 4. Chronic back pain. 5. Folliculitis of the labia. 6. Constipation. 7. Ulcerative colitis presently on no medications but was diagnosed about [address] scan on this admission was essentially negative. She does not have a referral for GI at this point. 8. Chronic obstructive pulmonary disease without exacerbation. 9. Gastroesophageal reflux disease. 10. Hypertension on medications. 11. History of atrial fibrillation on Metoprolol. She also has not seen a airframe technical officer, although at some point she was to see Dr. Snow. 11. History of mitral valve prolapse. 12. Remote history of seizure times 1 in 2005 most likely due to hyponatremia. PLAN: We will continue present supportive care. She will need to see a airframe technical officer and be evaluated for medications as we may need to add Cardizem. It may be beneficial to discharge her on long-acting Cardizem other than the short-acting Cardizem for compliance. Her Lovenox has also been discontinued and I will start her on Eliquis for her atrial fibrillation. I have also given her some Milk of Magnesia for constipation. I have started her on Haldol for her abdominal pain as well as her chronic pain issues as that seems to have helped. Her Gabapentin has been increased. I have added Bactrim for the folliculitis as well as some warm compresses. Tramadol does seem to help with her heart pain issues and so I have ordered that as needed. At this point her lab is stable and will need to watch her clinically for discharge. She will have an echocardiogram in the morning. She will need a followup with Dr. Hicks after discharge as well as recommended GI consultation as well as cardiology consultation. Will continue to monitor closely and follow as needed. [id number] [facility]
[2018-12-16] MEDS ORDERED: GABAPENTIN 300 MG CAP PO SCH (21:00)
[2018-12-16] MEDS: APIXABAN 5 MG TAB PO SCH (21:29)
[2018-12-16] MEDS: TEMAZEPAM 15 MG CAP PO PRN (21:30)
[2018-12-17] MEDS: diltiaZEM HCL TAB 30 MG TAB PO SCH ×2 (01:11→06:32)
[2018-12-17] MEDS: DICYCLOMINE HCL 20 MG TAB PO SCH ×2 (02:11→09:26)
[2018-12-17] MEDS ORDERED: PANTOPRAZOLE SODIUM TAB 40 MG PO SCH (06:30)
[2018-12-17 06:32] VITALS: BP 131/86; TEMP 98.1
[2018-12-17] MEDS: METOPROLOL TARTRATE 50 MG TAB PO SCH (07:40)
[2018-12-17] MEDS: LEVALBUTEROL NEBS 1.25 MG/3 ML VIAL NEB SCH (07:57)
[2018-12-17 08:00] VITALS: O2SAT 99
[2018-12-17] MEDS: SULFA/TRIMETH 800/160 (DS) TAB 1 EA TAB PO SCH (09:25)
[2018-12-17] MEDS: LISINOPRIL 10 MG TAB PO SCH (09:25)
[2018-12-17] MEDS: DULoxetine HCL 30 MG CAP PO SCH (09:26)
[2018-12-17] MEDS: APIXABAN 5 MG TAB PO SCH (09:26)
[2018-12-17] MEDS: GABAPENTIN 300 MG CAP PO SCH (09:26)
[2018-12-17] MEDS: SODIUM CHLORIDE 0.9% (FLUSH) 10 ML SYG IV SCH (09:32)
--- NOTE | 2018-12-17 13:13 | DS ---
SUPERVISING PHYSICIAN: Harjit Montilla MD ADMISSION DIAGNOSIS: 1. Atrial fibrillation with rapid ventricular response. 2. Chronic pain syndrome. 3. Fibromyalgia. 4. Chronic back pain. 5. Ulcerative colitis. 6. Chronic obstructive pulmonary disease without exacerbation. 7. Gastroesophageal reflux disease. 8. Hypertension. 9. History of atrial fibrillation on metoprolol. 10. History of mitral valve prolapse. 11. Remote history of seizure. DISCHARGE DIAGNOSIS: 1. Atrial fibrillation with rapid ventricular response. 2. Chronic pain syndrome. 3. Fibromyalgia. 4. Chronic back pain. 5. Ulcerative colitis. 6. Chronic obstructive pulmonary disease without exacerbation. 7. Gastroesophageal reflux disease. 8. Hypertension. 9. History of atrial fibrillation on metoprolol. 10. History of mitral valve prolapse. 11. Remote history of seizure. HOSPITAL COURSE: This is a 58-year-old female who presented to the Emergency Room with palpitations and shortness of breath. She had not felt well over the two weeks prior. She has these palpitations and shortness of breath that started about 6 PM the day prior to admission. Due to the shortness of breath, she took albuterol with no significant improvement. She came to the Emergency Rooms and was noted to be in atrial fibrillation. She was started on Cardizem drip. It eventually converted her. She was placed on Eliquis and p.o. diltiazem 30 mg every 6 hours. Today, she is alert and oriented with no complaints. She is fine to go home. I am going to put her on diltiazem 120 mg extended release. My recommendations are for followup with Dr. Vela who she has seen in the past. Also, I prescribed Eliquis. Additionally, she was started on some Neurontin here and will resume that as well. She was also noted to have folliculitis of her labia and was started on Bactrim and therefore I will complete a 10-day course of that as well. She will followup with Dr. Hicks in 7 days as well. #[id number] [facility]
== END 2018-12-17 09:55 | disposition home or self-care (01) | DRG 309 ==
LOC: ER 18:58 → MS 12-15 00:59 → OBSVTOIN 12-15 00:59
PROVIDERS: ADMIT Nurse Practitioner Acute Care; ATTEND Nurse Practitioner
DX: I48.91 Unspecified atrial fibrillation (principal); K51.90 Ulcerative colitis, unspecified, without complications; G89.4 Chronic pain syndrome; M79.7 Fibromyalgia; M54.9 Dorsalgia, unspecified; J43.9 Emphysema, unspecified; K21.9 Gastro-esophageal reflux disease without esophagitis; I10 Essential (primary) hypertension; L73.9 Follicular disorder, unspecified; G62.9 Polyneuropathy, unspecified; I34.1 Nonrheumatic mitral (valve) prolapse; M25.512 Pain in left shoulder; E87.6 Hypokalemia; E83.42 Hypomagnesemia; F41.9 Anxiety disorder, unspecified; Z88.6 Allergy status to analgesic agent; Z88.8 Allergy status to other drugs, medicaments and biological substances; Z79.891 Long term (current) use of opiate analgesic; Z87.891 Personal history of nicotine dependence; Z79.899 Other long term (current) drug therapy

== ENCOUNTER 2018-12-28 03:26 | Emergency (ER) | payer BC ==
--- NOTE | 2018-12-28 03:43 | ED.PDOC ---
History of Present Illness - General Chief Complaint: Unresponsive Stated Complaint: Unresponsive per EMS with no pulse Time Seen by Provider: 12/28/18 03:39 Source: Vital Signs reviewed, EMS notes reviewed, EMS Exam Limitations: clinical condition - History of Present Illness Initial Comments: Per EMS, patient was found at 0308 unresponsive with no pulse in her house. She was found slumped over next to toilet. They started CPR with lou machine, intubated patient, pushed 3 rounds of epi. Timing/Prior Episodes: no prior history Precipitating Factors: none Context: sitting Allergies/Adverse Reactions: Allergies Buprenorphine Allergy (Verified 12/15/18 01:38) Cefaclor [From Ceclor] Allergy (Verified 07/30/18 18:08) Midazolam [From Versed] Allergy (Verified 12/15/18 01:38) NSAIDs Allergy (Verified 07/30/18 18:09) Ondansetron [From Zofran] Allergy (Verified 12/15/18 01:38) Home Medications: Ambulatory Orders Albuterol Sulfate Nebs [Proventil Nebs] 2.5 mg INH TID PRN 07/30/18 Albuterol Sulfate [Ventolin Hfa] 90 mcg IN Q4H PRN 07/30/18 [id number] [Butalbital/Acetaminophen/ 50-325-40 mg] 1 cap PO Q6H PRN 07/30/18 DULoxetine HCL [Cymbalta] 60 mg PO DAILY 07/30/18 Lisinopril [Zestril] 40 mg PO DAILY 07/30/18 Metoprolol Tartrate [Lopressor] 100 mg PO BID 07/30/18 Docusate Sodium [Stool Softener] 100 mg PO PRN 11/18/18 Pantoprazole Sodium 40 mg PO DAILY 11/18/18 Dicyclomine HCl [Bentyl] 40 mg PO QID 12/14/18 Apixaban [Eliquis] 5 mg PO BID 30 Days #60 tab 12/17/18 Gabapentin [Neurontin] 300 mg PO TID 30 Days #90 cap 12/17/18 Sulfa/Trimeth 800/160 (Ds) Tab [Bactrim DS] 1 ea PO BID 10 Days #20 tab 12/17/18 diltiaZEM HCL CD [Cardizem Cd] 120 mg PO DAILY 30 Days #30 cap 12/17/18 Review of Systems - Review of Systems Unable to Obtain Due To: intubated, clinical condition Past Medical History (General) - Patient Medical History Hx Seizures: Yes - Once Hx Stroke: No Hx Asthma: Yes Hx of COPD: Yes Hx Cardiac Disorders: Yes - mitral valve prolapse Hx Congestive Heart Failure: No Hx Pacemaker: No Hx Hypertension: Yes Hx Diabetes: No Hx Gastroesophageal Reflux: Yes Hx MRSA: No - Vaccination History Hx Tetanus, Diphtheria Vaccination: Yes Hx Influenza Vaccination: Yes Hx Pneumococcal Vaccination: Yes - Social History Hx Tobacco Use: No Hx Alcohol Use: No Hx Substance Use: No Hx Substance Use Treatment: No Hx Depression: No Hx Physical Abuse: No Hx Emotional Abuse: No - Female History Patient : No Physical Exam - Physical Exam General Appearance: Ill Appearing Eyes, Ears, Nose, Throat Exam: other - Pupils 7-8 mm bilaterally, fixed. Not responsive to light. Black emesis visible around mouth Cardiovascular/Respiratory: other - no pulse, no rhythm on monitor when lou stopped. Gastrointestinal/Abdominal: distended Extremity: other - cold extremities Mental Status: unresponsive Skin Exam: mottled Progress - Progress Progress: 12/28/18 03:44 On arrival to our ER, patient had been undergoing CPR for approximately 20 minutes. We did 2 rounds of CPR here and pushed Epi and Amiodarone. Given lack of pupillary response, very cold extremities, and CPR for approximately 25 minutes, we decided to call it and call time of . I talked to the family for 5 minutes about what happened. Departure - Departure Clinical Impression: Disposition: Discharge to Home or Self Care Departure Forms: ED Discharge - Pt. Copy, Patient Portal Self Enrollment Referrals: TIMMY AVALOS [Primary Care Provider] - 1-2 Weeks Home Medications: Ambulatory Orders Albuterol Sulfate Nebs [Proventil Nebs] 2.5 mg INH TID PRN 07/30/18 Albuterol Sulfate [Ventolin Hfa] 90 mcg IN Q4H PRN 07/30/18 [id number] [Butalbital/Acetaminophen/ 50-325-40 mg] 1 cap PO Q6H PRN 07/30/18 DULoxetine HCL [Cymbalta] 60 mg PO DAILY 07/30/18 Lisinopril [Zestril] 40 mg PO DAILY 07/30/18 Metoprolol Tartrate [Lopressor] 100 mg PO BID 07/30/18 Docusate Sodium [Stool Softener] 100 mg PO PRN 11/18/18 Pantoprazole Sodium 40 mg PO DAILY 11/18/18 Dicyclomine HCl [Bentyl] 40 mg PO QID 12/14/18 Apixaban [Eliquis] 5 mg PO BID 30 Days #60 tab 12/17/18 Gabapentin [Neurontin] 300 mg PO TID 30 Days #90 cap 12/17/18 Sulfa/Trimeth 800/160 (Ds) Tab [Bactrim DS] 1 ea PO BID 10 Days #20 tab 12/17/18 diltiaZEM HCL CD [Cardizem Cd] 120 mg PO DAILY 30 Days #30 cap 12/17/18 Critical Care Note - Critical Care Note Total Time (mins): 10 Comments: For CPR and discussion with family.
[2018-12-28 04:18] VITALS: TEMP 90.4
[2018-12-28] MEDS ORDERED: EPINEPHrine INJ 0.1 MG/ML 10 ML SYG ONE (07:00)
[2018-12-28] MEDS ORDERED: AMIODARONE HCL 150 MG/3 ML VIAL IVPB ONE (07:00)
== END 2018-12-28 03:33 | disposition expired ==
LOC: ER 03:26
DX: J44.9 Chronic obstructive pulmonary disease, unspecified; I34.1 Nonrheumatic mitral (valve) prolapse; I10 Essential (primary) hypertension; K21.9 Gastro-esophageal reflux disease without esophagitis; Z79.899 Other long term (current) drug therapy; Z88.8 Allergy status to other drugs, medicaments and biological substances; Z88.1 Allergy status to other antibiotic agents; Z88.6 Allergy status to analgesic agent
CPT/HCPCS: 80053; 84484; 85025; 92950; J0282